=== PATIENT | female | born 1970 | race Caucasian/White ===

== ENCOUNTER 2018-08-19 14:17 | Emergency (ER) | payer MEDICAID ==
[2018-08-19] MEDS ORDERED: diazePAM 5 MG TABLET PO STA (16:00)
[2018-08-19] MEDS ORDERED: predniSONE 20 MG TABLET PO STA (16:00)
--- NOTE | 2018-08-19 16:01 | ED Physician Documentation ---
PD HPI BACK PAIN - Stated complaint Stated Complaint: BACK PX - Chief complaint Chief Complaint: Back Pain - History obtained from History obtained from: Patient - History of Present Illness Timing - onset: Other (several days ago) Timing - details: Gradual onset Severity Comments: moderate Location: Lower Quality: Pain, Spasm, Other (with radiation into her left buttocks and leg). No: Tearing, Aching, Throbbing, Dull, Similar to prior episodes Associated symptoms: No: Fever, Weakness, Numbness, Incontinent of urine, Unable to urinate, Hematuria, Incontinent of stool Improves with: Position Worsened by: Movement, Lifting, Twisting Contributing factors: Lifting, Twisting. No: Trauma, Anticoagulated, Cancer, IVDA, Out of meds Similar symptoms before: Other (similar to prior episodes) Recently seen: Not recently seen Review of Systems Constitutional: denies: Fever, Chills, Fatigue Eyes: denies: Loss of vision, Decreased vision Ears: denies: Ear pain Nose: denies: Congestion Throat: denies: Sore throat Cardiac: denies: Chest pain / pressure Respiratory: denies: Cough GI: denies: Abdominal Pain : denies: Dysuria Skin: denies: Rash Musculoskeletal: reports: Back pain. denies: Neck pain, Joint swelling Neurologic: denies: Generalized weakness, Focal weakness, Numbness, Difficulty speaking PD PAST MEDICAL HISTORY - Past Medical History Cardiovascular: High cholesterol, Deep vein thrombosis Respiratory: COPD Endocrine/Autoimmune: Type 2 diabetes GI: GERD : Other Musculoskeletal: Fibromyalgia - Present Medications Home Medications: Ambulatory Orders Medication Instructions Recorded Confirmed Albuterol Sulf [Ventolin Hfa 1 - 2 puffs INH Q4HR PRN 08/19/18 08/19/18 Inhaler] Atorvastatin [Lipitor] 0 mg 08/19/18 Budesonide/Formoterol Fumarate 10.2 gm IH 08/19/18 [Symbicort 160-4.5 Mcg Inhaler] Celecoxib [CeleBREX] 100 mg PO BID 08/19/18 08/19/18 Cetirizine [ZyrTEC] 10 mg PO ONCE 08/19/18 08/19/18 Cyclobenzaprine [Flexeril] 10 mg PO TID PRN 08/19/18 08/19/18 Dulaglutide [Trulicity] 1.5 mg SQ 08/19/18 Glipizide [Glucotrol] 5 mg PO 08/19/18 Hydroxychloroquine [Plaquenil] 200 mg PO DAILY 08/19/18 08/19/18 Lactobacillus Acidophilus 08/19/18 [Probiotic Acidophilus] Lansoprazole [Prevacid] 15 mg PO 08/19/18 Lisinopril 2.5 mg PO 08/19/18 Mometasone Furoate 30 ml TP 08/19/18 08/19/18 Montelukast [Singulair] 10 mg PO QPM 08/19/18 08/19/18 Pregabalin [Lyrica] 150 mg PO 08/19/18 SUMAtriptan [Imitrex] 25 mg PO 08/19/18 buPROPion [Wellbutrin Xl] 150 mg PO DAILY 08/19/18 08/19/18 diazePAM [Valium] 5 - 10 mg PO TID PRN #15 tablet 08/19/18 metFORMIN [Glucophage] 500 mg PO BIDWM 08/19/18 08/19/18 predniSONE [Prednisone] 60 mg PO DAILY #12 tablet 08/19/18 - Allergies Allergies/Adverse Reactions: Allergies Allergy/AdvReac Type Severity Reaction Status Date / Time adhesive Allergy Rash Verified 08/19/18 14:28 Sulfa (Sulfonamide Allergy Edema Verified 08/19/18 14:28 Antibiotics) - Social History Does the pt smoke?: No Smoking Status: Never smoker PD ED PE NORMAL - General General: Alert and oriented X 3. No: No acute distress (Patient appears quite uncomfortable) - HEENT HEENT: Atraumatic, PERRL, EOMI, Ears normal - Neck Neck: Supple, no meningeal sign - Cardiac Cardiac: RRR, Strong equal pulses - Respiratory Respiratory: No respiratory distress - Back Back: No: No spinal TTP (The patient has tenderness to palpation of the paraspinal muscles on the left lumbar over L4, L5 and S1. There is no skin changes, crepitus or swelling) - Derm Derm: Normal color - Extremities Extremities: No deformity, No tenderness to palpate, Normal ROM s pain, No edema, No calf tenderness / cord - Neuro Neuro: Alert and oriented X 3, No motor deficit, No sensory deficit, Normal speech, Other (2/4 Patellar reflex) - Psych Psych: Normal affect Results - Vitals Vitals: Vital Signs - 24 hr 08/19/18 14:25 Temperature 36 C L Heart Rate 90 Respiratory 22 Rate Blood Pressure 132/68 H O2 Saturation 98 Oxygen O2 Source Room air PD MEDICAL DECISION MAKING - ED course ED course: The patient's symptoms are consistent with sciatica, presently there is no findings on physical or on her history to suggest acute cauda equina or epidural abscess and currently emergent MRI is not warranted. The patient appears appropriate for discharge and ongoing outpatient management. I discussed the plan with the patient who understands and agrees. The patient will return for any worsening or any concerns Departure - Departure Disposition: 01 Home, Self Care Clinical Impression: Sciatica Qualifiers: Laterality: left Qualified Code(s): M54.32 - Sciatica, left side Condition: Good Instructions: ED Sciatica Follow-Up: Latisha Bhatti MD [Primary Care Provider] - Within 1 week (Please ask your primary care to arrange for outpatient physical therapy. If your symptoms not improving you may need a referral to pain management and possibly an outpatient MRI) Prescriptions: diazePAM [Valium] 5 - 10 mg PO TID PRN #15 tablet PRN Reason: Spasms predniSONE [Prednisone] 60 mg PO DAILY #12 tablet Comments: Please return to the emergency department for worsening symptoms or any concerns
[2018-08-19 16:32] VITALS: BP 110/53
== END 2018-08-19 16:31 | disposition home or self-care (01) ==
LOC: ED 14:17
DX: M54.42 Lumbago with sciatica, left side (principal); E11.9 Type 2 diabetes mellitus without complications; Z79.84 Long term (current) use of oral hypoglycemic drugs
CPT/HCPCS: 99283; A9270; J7512

== ENCOUNTER 2019-02-15 12:54 | Outpatient (CLI) | payer MEDICAID | END 2019-02-15 12:55 | disposition critical access hospital (66) | LOC: EMS 12:54 | PROVIDERS: ATTEND Surgery | DX: M79.89 Other specified soft tissue disorders (principal); M79.662 Pain in left lower leg; Z86.718 Personal history of other venous thrombosis and embolism | CPT/HCPCS: A0425; A0429 ==

== ENCOUNTER 2019-02-15 13:27 | Emergency (ER) | payer MEDICAID ==
--- NOTE | 2019-02-15 14:53 | Ultrasound Report ---
Reason: leg swelling and redness Procedure Date: 02/15/2019 Accession Number: [id number] / [id number] Procedure: US - Duplex Ext Veins Left CPT Code: FULL RESULT: EXAM: LEFT LOWER EXTREMITY VENOUS ULTRASOUND EXAM DATE: 02/15/2019 02:28 PM. CLINICAL HISTORY: Leg swelling and redness. COMPARISON: None. TECHNIQUE: Real-time sonographic vascular imaging was performed by the sales and service specialist through the lower extremity utilizing both color-flow and Doppler spectral analysis. Multiple retention representative static images were saved for review. FINDINGS: The exam is limited due to patient's body habitus and the patient unable to tolerate compression test. Common Femoral Vein (CFV): Unremarkable. CFV-GSV Junction: Unremarkable. Profunda Femoral Vein (PFV): Unremarkable. Femoral Vein (FV) Prox: Unremarkable. Femoral Vein (FV) Mid: Unremarkable. Femoral Vein (FV) Dist: Unremarkable. Popliteal Vein: Unremarkable. Posterior Tibial Veins: Unremarkable. Peroneal Veins: Normal. Other: None. IMPRESSION: Negative exam. No evidence for deep venous thrombosis. RADIA
[2019-02-15 15:36] VITALS: BP 124/62
--- NOTE | 2019-02-15 15:39 | ED Physician Documentation ---
PD HPI LOWER EXT INJURY - Stated complaint Stated Complaint: LEG SWELLING - Chief complaint Chief Complaint: Ext Problem - History obtained from History obtained from: Patient - History of Present Illness PD HPI LOW EXT INJURY LOCATION: Left, Lower leg Type of injury: Other (redness and swelling have developed over several days. No noted injury, irritant, sting, bite, etc.). No: Fall, Twist Timing - onset: How many days ago (several) Timing - duration: Days Timing - details: Gradual onset, Still present Worsened by: Palpating Associated symptoms: Swelling, Discolored (some redness to lower leg, mainly left leg. Has history of some edema mildly in both), Other (has had some itching of the skin on anterior left lower leg. No noted chemical, plant, bug bit etc.). No: Weakness, Numbness Contributing factors: No: Anticoagulated Similar symptoms before: Diagnosis (had similar swelling and pain in the past with a DVT.) Recently seen: Not recently seen Review of Systems Constitutional: denies: Fever, Chills Nose: denies: Rhinorrhea / runny nose, Congestion Throat: denies: Sore throat Cardiac: denies: Chest pain / pressure, Palpitations Respiratory: denies: Dyspnea, Cough GI: denies: Abdominal Pain, Nausea, Vomiting, Diarrhea Skin: reports: Lesions (has some few red spots on lower leg from scratching itchy areas the past few days.) Neurologic: denies: Focal weakness, Numbness PD PAST MEDICAL HISTORY - Past Medical History Past Medical History: Yes Cardiovascular: High cholesterol, Deep vein thrombosis Respiratory: COPD Neuro: Migraines Endocrine/Autoimmune: Type 2 diabetes GI: GERD : Other Psych: Depression Musculoskeletal: Osteoarthritis, Fibromyalgia - Past Surgical History Past Surgical History: Yes General: Hiatal hernia repair HEENT: Tonsil/Adenoidectomy - Present Medications Home Medications: Ambulatory Orders Medication Instructions Recorded Confirmed Albuterol Sulf [Ventolin Hfa 1 - 2 puffs INH Q4HR PRN 08/19/18 08/19/18 Inhaler] Atorvastatin [Lipitor] 0 mg 08/19/18 Budesonide/Formoterol Fumarate 10.2 gm IH 08/19/18 [Symbicort 160-4.5 Mcg Inhaler] Celecoxib [CeleBREX] 100 mg PO BID 08/19/18 08/19/18 Cetirizine [ZyrTEC] 10 mg PO ONCE 08/19/18 08/19/18 Cyclobenzaprine [Flexeril] 10 mg PO TID PRN 08/19/18 08/19/18 Dulaglutide [Trulicity] 1.5 mg SQ 08/19/18 Glipizide [Glucotrol] 5 mg PO 08/19/18 Hydroxychloroquine [Plaquenil] 200 mg PO DAILY 08/19/18 08/19/18 Lactobacillus Acidophilus 08/19/18 [Probiotic Acidophilus] Lansoprazole [Prevacid] 15 mg PO 08/19/18 Lisinopril 2.5 mg PO 08/19/18 Mometasone Furoate 30 ml TP 08/19/18 08/19/18 Montelukast [Singulair] 10 mg PO QPM 08/19/18 08/19/18 Pregabalin [Lyrica] 150 mg PO 08/19/18 SUMAtriptan [Imitrex] 25 mg PO 08/19/18 buPROPion [Wellbutrin Xl] 150 mg PO DAILY 08/19/18 08/19/18 diazePAM [Valium] 5 - 10 mg PO TID PRN #15 tablet 08/19/18 metFORMIN [Glucophage] 500 mg PO BIDWM 08/19/18 08/19/18 predniSONE [Prednisone] 60 mg PO DAILY #12 tablet 08/19/18 Cephalexin [Keflex] 500 mg PO Q6H #20 capsule 02/15/19 dexAMETHasone [Decadron] 4 mg PO DAILY #5 tablet 02/15/19 - Allergies Allergies/Adverse Reactions: Allergies Allergy/AdvReac Type Severity Reaction Status Date / Time adhesive Allergy Rash Verified 02/15/19 13:32 Sulfa (Sulfonamide Allergy Edema Verified 02/15/19 13:32 Antibiotics) - Social History Does the pt smoke?: No Smoking Status: Never smoker Does the pt drink ETOH?: No Does the pt have substance abuse?: No - Immunizations Immunizations are current?: Yes - POLST Patient has POLST: No PD ED PE NORMAL - Vitals Vital signs reviewed: Yes - General General: Alert and oriented X 3, No acute distress, Well developed/nourished - Cardiac Cardiac: RRR, No murmur - Respiratory Respiratory: Clear bilaterally - Derm Derm: Normal color, Warm and dry - Extremities Extremities: Other (left lower leg with some redness anteriorly and medially, but not deep red. No warmth per se. Few superficial rounded abrasions. No pustules. Some tenderness medial lower leg and calf. Some swelling compared to right, but both with some edema. Right is not tender. ) - Neuro Neuro: No motor deficit, No sensory deficit Results - Vitals Vitals: Oxygen O2 Source Room air - Rads (name of study) Duplex lower leg Radiology: Prelim report reviewed (no DVT), See rad report PD MEDICAL DECISION MAKING - ED course Complexity details: reviewed results (Duplex shows no DVT. ), considered differential (some mild redness anteriorly and medially on lower leg, with some few small scratches. Consider some dermatitis. Consider cellulitis, but not as red as I would expect. Consider DVT and will get Duplex. ), d/w patient Departure - Departure Disposition: 01 Home, Self Care Clinical Impression: Swelling of left lower extremity Cellulitis Qualifiers: Site of cellulitis: extremity Site of cellulitis of extremity: lower extremity Laterality: left Qualified Code(s): L03.116 - Cellulitis of left lower limb Condition: Stable Record reviewed to determine appropriate education?: Yes Follow-Up: ELYSSA LOFTON [Primary Care Provider] - Prescriptions: Cephalexin [Keflex] 500 mg PO Q6H #20 capsule dexAMETHasone [Decadron] 4 mg PO DAILY #5 tablet Comments: This may be an irritation of the skin (dermatitis). As such continue your cetirizine and add Benadryl every 6 hours if needed for itchiness. We will also add Decadron steroid for 5 days. The redness and swelling of the skin could also be infection and so we will add cephalexin antibiotic as well. Elevate and rest the leg often the next couple of days. Recheck if not improved well over the next several days. Your ultrasound did not show any signs of blood clots. The test has a very good accuracy for blood clots but not 100%, so if your leg continues to have swelling and tenderness into next week, your provider could always repeat the ultrasound at about 5 to 7 days just to ensure we do not miss an early one. Discharge Date/Time: 02/15/19 16:27
[2019-02-15] MEDS ORDERED: CHERRY SYRUP 10 ML UDC PO ONE (15:53)
[2019-02-15] MEDS ORDERED: cephALEXin 250 MG CAPSULE PO STA (15:53)
[2019-02-15] MEDS ORDERED: DEXAMETHASONE 10 MG/ML VIAL PO STA (15:53)
== END 2019-02-15 16:27 | disposition home or self-care (01) ==
LOC: EDUNIT# → ED 13:27
DX: L03.116 Cellulitis of left lower limb (principal); M79.89 Other specified soft tissue disorders; S80.812A Abrasion, left lower leg, initial encounter; X58.XXXA Exposure to other specified factors, initial encounter; Z86.718 Personal history of other venous thrombosis and embolism; E11.9 Type 2 diabetes mellitus without complications; Z79.84 Long term (current) use of oral hypoglycemic drugs
CPT/HCPCS: 93971; 99284; A9270

== ENCOUNTER 2019-03-22 16:26 | Outpatient (CLI) | payer MEDICAID | END 2019-03-22 16:27 | disposition critical access hospital (66) | LOC: EMS 16:26 | PROVIDERS: ATTEND Surgery | DX: R06.00 Dyspnea, unspecified (principal) | CPT/HCPCS: A0425; A0427; A0999 ==

== ENCOUNTER 2019-03-22 16:56 | Inpatient (IN) | payer MEDICAID ==
--- NOTE | 2019-03-22 16:59 | ED Physician Documentation ---
History of Present Illness - Stated complaint Stated Complaint: SOA - Additonal information Additional information: This is a 49-year-old female with a history of tracheoesophageal fistula repaired at , COPD, diabetes, recurrent pneumonias, left upper lobe lobectomy, secondary to necrotic lung, who presents with increasing shortness of breath. Patient states that 3 days ago she began to feel some mild shortness of breath, she is also had intermittent cough it is nonproductive, this is progressed over the last 3 days and is not now fairly severe. She states that when her physical therapist checked her oxygen saturation 3 days ago she did have a large saturation of 88%. She denies fever or chills, denies abdominal pain. She does not have any chest pain. She denies leg swelling. She does have a history of pulmonary embolisms in the past, she is not on anticoag ulation. Review of Systems Constitutional: denies: Fever Nose: denies: Rhinorrhea / runny nose Throat: reports: Other (Hx TE fistula, repaired) Cardiac: denies: Chest pain / pressure Respiratory: reports: Dyspnea, Cough GI: denies: Abdominal Pain : denies: Dysuria Skin: denies: Rash Neurologic: denies: Focal weakness PD PAST MEDICAL HISTORY - Past Medical History Cardiovascular: High cholesterol, Deep vein thrombosis Respiratory: COPD Neuro: Migraines Endocrine/Autoimmune: Type 2 diabetes GI: GERD : Other Psych: Depression Musculoskeletal: Osteoarthritis, Fibromyalgia - Past Surgical History Past Surgical History: Yes General: Hiatal hernia repair HEENT: Tonsil/Adenoidectomy - Present Medications Home Medications: Ambulatory Orders Medication Instructions Recorded Confirmed Albuterol Sulf [Ventolin Hfa 1 - 2 puffs INH Q4HR PRN 08/19/18 08/19/18 Inhaler] Atorvastatin [Lipitor] 0 mg 08/19/18 Budesonide/Formoterol Fumarate 10.2 gm IH DAILY 08/19/18 [Symbicort 160-4.5 Mcg Inhaler] Celecoxib [CeleBREX] 100 mg PO BID 08/19/18 08/19/18 Cetirizine [ZyrTEC] 10 mg PO ONCE 08/19/18 08/19/18 Cyclobenzaprine [Flexeril] 10 mg PO TID PRN 08/19/18 08/19/18 Glipizide [Glucotrol] 5 mg PO DAILY 08/19/18 Hydroxychloroquine [Plaquenil] 200 mg PO DAILY 08/19/18 08/19/18 Lactobacillus Acidophilus 08/19/18 [Probiotic Acidophilus] Lansoprazole [Prevacid] 15 mg PO DAILY 08/19/18 03/22/19 Lisinopril 2.5 mg PO DAILY 08/19/18 03/22/19 Mometasone Furoate 30 ml TP DAILY 08/19/18 03/22/19 Montelukast [Singulair] 10 mg PO QPM 08/19/18 03/22/19 Pregabalin [Lyrica] 150 mg PO DAILY 08/19/18 03/22/19 SUMAtriptan [Imitrex] 25 mg PO DAILY 08/19/18 03/22/19 buPROPion [Wellbutrin Xl] 300 mg PO DAILY 08/19/18 03/22/19 diazePAM [Valium] 5 - 10 mg PO TID PRN #15 tablet 08/19/18 03/22/19 metFORMIN [Glucophage] 500 mg PO BIDWM 08/19/18 03/22/19 - Allergies Allergies/Adverse Reactions: Allergies Allergy/AdvReac Type Severity Reaction Status Date / Time adhesive Allergy Rash Verified 02/15/19 13:32 Sulfa (Sulfonamide Allergy Edema Verified 02/15/19 13:32 Antibiotics) - Social History Does the pt smoke?: No Smoking Status: Never smoker Does the pt drink ETOH?: No Does the pt have substance abuse?: No - Immunizations Immunizations are current?: Yes - POLST Patient has POLST: No PD ED PE NORMAL - Vitals Vital signs reviewed: Yes - General General: Alert and oriented X 3 - HEENT HEENT: Atraumatic - Neck Neck: Supple, no meningeal sign - Cardiac Cardiac: Other (Borderline tachycardia on my exam, regular rhythm.) - Respiratory Respiratory: Other (Tachypnea, increased work of breathing. Scattered crackles that fade with repeat breaths.) - Abdomen Abdomen: Soft, Non tender, Non distended - Derm Derm: Warm and dry - Extremities Extremities: No deformity - Neuro Neuro: Alert and oriented X 3 - Psych Psych: Normal mood, Normal affect Results - Vitals Vitals: Vital Signs - 24 hr 03/22/19 03/22/19 03/22/19 17:00 17:35 18:00 Temperature 36.2 C L Heart Rate 87 88 Respiratory 20 18 18 Rate Blood Pressure 124/98 H O2 Saturation 95 88 L 03/22/19 03/22/19 18:48 19:20 Temperature Heart Rate 91 98 Respiratory 17 19 Rate Blood Pressure 130/69 142/78 H O2 Saturation 96 96 Oxygen O2 Source Nasal cannula - EKG (time done) 17:11 Other comments: Other comments (Rate 91, rhythm sinus, there is left axis deviation, there is no ST segment elevation or depression, there is borderline prolonged QT interval at 480.) - Labs Labs: Laboratory Tests 03/22/19 03/22/19 03/22/19 17:45 17:45 17:45 WBC 13.6 H RBC 3.75 L Hgb 10.7 L Hct 33.4 L MCV 89.1 MCH 28.5 MCHC 32.0 RDW 17.2 H Plt Count 213 MPV 11.6 H Neut # (Auto) 12.6 H Lymph # (Auto) 0.[address] [place] # (Auto) 0.3 Eos # (Auto) 0.0 Baso # (Auto) 0.0 Absolute Nucleated RBC 0.00 Nucleated RBC % 0.0 PT 13.5 H INR 1.2 Sodium 139 Potassium 4.7 Chloride 101 Carbon Dioxide 27 Anion Gap 11.0 BUN 15 Creatinine 1.2 H Estimated GFR (MDRD) 48 L Glucose 367 H Calcium 9.0 Total Bilirubin 1.1 H AST 14 ALT 15 Alkaline Phosphatase 81 Troponin I High Sens B-Natriuretic Peptide Total Protein 6.9 Albumin 3.6 Globulin 3.3 Albumin/Globulin Ratio 1.1 Lipase 29 03/22/19 03/22/19 17:45 17:45 WBC RBC Hgb Hct MCV MCH MCHC RDW Plt Count MPV Neut # (Auto) Lymph # (Auto) [place] # (Auto) Eos # (Auto) Baso # (Auto) Absolute Nucleated RBC Nucleated RBC % PT INR Sodium Potassium Chloride Carbon Dioxide Anion Gap BUN Creatinine Estimated GFR (MDRD) Glucose Calcium Total Bilirubin AST ALT Alkaline Phosphatase Troponin I High Sens 8.2 B-Natriuretic Peptide 70 Total Protein Albumin Globulin Albumin/Globulin Ratio Lipase - Rads (name of study) CXR Radiology: Other (Airspace opacity concerning for pneumonia in the left upper lobe.) PD MEDICAL DECISION MAKING - ED course Complexity details: considered differential (Pneumonia, PE, pneumonitis, ACS, Asthma/bronchospasm) ED course: On initial examination patient is tachypneic, she does desaturate to 88% on room air anytime that her breathing slows down. She was placed on 2 L nasal cannula and her oxygenation improved. Labs are notable for a leukocytosis, her x-ray does show airspace opacities concerning for pneumonia. When patient ambulates her oxygen dropped as low as 80% when she is off of oxygen. Given her history of pulmonary embolisms a CT of her chest was obtained which shows multifocal airspace opacities consistent with pneumonia, no signs of pulmonary embolism. Given her hypoxia patient was admitted to the hospital, I spoke with Dr. Lowry who admitted her, and will start antibiotics. Patient was updated with this plan of care, she is hemodynamically stable, with no new complaints. Her EKG shows no signs of acute ischemia, troponin and BNP negative, and she is not having any chest pain, ACS is extremely unlikely. Departure - Departure Disposition: ED Place in Observation Clinical Impression: Hypoxia Condition: Stable Discharge Date/Time: 03/22/19 21:05
[2019-03-22] MEDS ORDERED: IPRATROPIUM/ALBUTEROL 3 ML NEB INH STA (17:09)
--- NOTE | 2019-03-22 17:48 | XRAY Report ---
Reason: Chest Pain Procedure Date: 03/22/2019 Accession Number: [id number] / [id number] Procedure: XR - Chest 1 View X-Ray CPT Code: 73508 FULL RESULT: EXAM: CHEST RADIOGRAPHY EXAM DATE: 03/22/2019 05:22 PM. CLINICAL HISTORY: Chest Pain. Shortness of breath. Nonproductive cough. COMPARISON: None. TECHNIQUE: Upright AP view. FINDINGS: Lungs/Pleura: Mild airspace consolidation in the left suprahilar region. Right lung clear. No interstitial abnormality. No pneumothorax or gross pleural fluid. Mediastinum: Within exam limitations, the cardiomediastinal contour is normal. Other: None. IMPRESSION: Mild left upper lobe consolidation suggesting pneumonia. RADIA
[2019-03-22 17:49] LABS: BASOPHILS % (AUTO) 0.3 %; EOSINOPHILS % (AUTO) 0.1 %; HGB - HEMOGLOBIN 10.7 g/dL (12.0-16.0); LYMPHOCYTES # (AUTO) 0.6 10^3/uL (1.5-3.5); MEAN CORPUSCULAR HEMOGLOBIN 28.5 pg (27.0-31.0); MEAN CORPUSCULAR VOLUME 89.1 fL (81.0-99.0); MEAN PLATELET VOLUME 11.6 fL (7.9-10.8); MONOCYTES # (AUTO) 0.3 10^3/uL (0.0-1.0); MONOCYTES % (AUTO) 2.5 %; NEUTROPHILS # (AUTO) 12.6 10^3/uL (1.5-6.6); NEUTROPHILS % (AUTO) 92.2 %; PLT - PLATELET COUNT 213 10^3/uL (130-450); RED BLOOD COUNT 3.75 10^6/uL (4.20-5.40); RED CELL DISTRIBUTION WIDTH 17.2 % (12.0-15.0); WHITE BLOOD COUNT 13.6 x10^3/uL (4.8-10.8)
[2019-03-22 18:00] LABS: INR 1.2 (0.8-1.2); PT - PROTHROMBIN TIME 13.5 secs (9.9-12.6)
[2019-03-22 18:03] LABS: ALBUMIN 3.6 g/dL (3.2-5.5); ALBUMIN/GLOBULIN RATIO 1.1 (1.0-2.2); BILIRUBIN,TOTAL 1.1 mg/dL (0.2-1.0); CREATININE 1.2 mg/dL (0.4-1.0); TOTAL PROTEIN 6.9 g/dL (6.7-8.2)
[2019-03-22] MEDS ORDERED: ONDANSETRON 4 MG/2 ML VIAL IVP PRN (20:01)
[2019-03-22] MEDS ORDERED: ACETAMINOPHEN 325 MG TABLET PO PRN (20:01)
[2019-03-22] MEDS ORDERED: IOVERSOL 320 100 ML VIAL IVP ONE (20:05)
--- NOTE | 2019-03-22 20:58 | CT Report ---
Reason: Hx PE, hypoxia Procedure Date: 03/22/2019 Accession Number: [id number] / [id number] Procedure: CT - ANGIO CHEST W/WO CPT Code: FULL RESULT: EXAM: CT ANGIOGRAM CHEST EXAM DATE: 03/22/2019 08:21 PM. CLINICAL HISTORY: Shortness of breath. COMPARISON: None. TECHNIQUE: Routine helical imaging was performed through the chest in the pulmonary arterial phase. IV Contrast: 100 mL Optiray 320. Reconstructions: Coronal 3-D MIP reconstructions.Sagittal and coronal. In accordance with CT protocol optimization, one or more of the following dose reduction techniques were utilized for this exam: automated exposure control, adjustment of mA and/or KV based on patient size, or use of iterative reconstructive technique. FINDINGS: Pulmonary Arteries: Diagnostic quality: Adequate through the segmental arteries. No evidence for acute or chronic pulmonary emboli. Lungs/Pleura: There is moderate consolidation in the upper lobes, left side worse than right side suggesting multifocal pneumonia or aspiration. Small pleural effusions are also present. Mediastinum: Heart size is normal with no pericardial effusion. Mild calcified coronary artery disease is seen. A fluid filled slightly dilated upper esophagus is seen which may be due to reflux. No adenopathy. Small hiatal hernia is present. Thoracic Aorta: Unremarkable. Upper Abdomen: Unremarkable. Other: Diffuse degenerative changes are seen in the spine. No acute osseous abnormality is demonstrated. IMPRESSION: 1. No pulmonary embolism or other acute vascular pathology. 2. Moderate upper lobe airspace disease suggesting multifocal pneumonia or aspiration. 3. Small bilateral pleural effusions and atelectasis. 4. Small hiatal hernia and fluid in dilated upper esophagus which may be related to reflux. RADIA
[2019-03-22] MEDS ORDERED: IPRATROPIUM/ALBUTEROL 3 ML NEB INH PRN (21:38)
[2019-03-22] MEDS: HEPARIN 5,000 UNIT/ML VIAL SUBQ SCH (21:49)
[2019-03-22] MEDS: cefTRIAXone 1 GM in SODIUM CHLORIDE 0.9% MINIBAG 100 ML IV SCH (21:49)
--- NOTE | 2019-03-22 21:50 | HISTORY & PHYSICAL EXAMINATION ---
Chief Complaint - Chief Complaint Chief Complaint: Shortness of breath History of Present Illness - Admitted From Admitted From:: Home - History Obtained From Records Reviewed: Yes History obtained from: Patient, ER Physician - History of Present Illness HPI Comment/Other: This is a 49 year old female with a past medical history significant for trac heoesophageal fistula s/p repair, type 2 diabeted w/ neuropathy, COPD, and GERD who presents from home complaining of worsening shortness of breath over these past three days. She denies associated fevers but has had a mild nonproductive cough. She denies worsening of her chronic lower extremity edema. She sleeps on a slight incline at home which is not changed compared to her baseline. She reports a prior history of pulmonary embolism a few years ago for which she was treated with Coumadin for 6 months. She has had multiple episdoes of pneumonia when she was younger and the last episode was over 20 years ago. She did require intubations at that time. 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 She reports she was told she only has 3/4 of a functioning right lung. She reports mild chest tightness that resolved with a breathing treatment. Denies nausea, vomiting, abdominal pain. In the ER, she was normotensive but tachycardic with heart rate in the 90's. She was also hypoxic on room air at 88% which improved to mid 90's on 2L NC. Her labs did reveal an elevated white count with a left shift. Her x-ray was concerning for left sided infiltrate. A CTA was done which was negative for pulmonary embolism but did confirm infiltrates suggestive of multifocal pne umonia or aspiration. She will be admitted for further management. History - Past Medical History Cardiovascular: reports: High cholesterol, Deep vein thrombosis Respiratory: reports: COPD Neuro: reports: Migraines Endocrine/Autoimmune: reports: Type 2 diabetes GI: reports: GERD : reports: Renal insuffiency Psych: reports: Depression Musculoskeletal: reports: Osteoarthritis, Fibromyalgia MRSA Hx?: No - Past Surgical History General: reports: Hiatal hernia repair HEENT: reports: Tonsil/Adenoidectomy - Family & Social History Family History Comment/Other: She reports a family history of heart failure on her mother's side of the family. Does not report any other family history. Reports no history of lung cancer. Living arrangement: At home Living Situation: With friend(s) Social History Notes: She currently lives on [facility] and is staying in a spare room with some friends. She is not currently working. Was employed as an front office representative. Does not smoke. Drinks alcohol at times. No illicit drug use at this time. Previously used CBD oil three months ago. - Substance History Use: Uses substance without health or social issues: NONE - POLST Patient has POLST: No Meds/Allgy - Home Medications Home Medications: Ambulatory Orders Medication Instructions Recorded Confirmed Albuterol Sulf [Ventolin Hfa 1 - 2 puffs INH Q4HR PRN 08/19/18 08/19/18 Inhaler] Atorvastatin [Lipitor] 0 mg 08/19/18 Budesonide/Formoterol Fumarate 10.2 gm IH DAILY 08/19/18 [Symbicort 160-4.5 Mcg Inhaler] Celecoxib [CeleBREX] 100 mg PO BID 08/19/18 08/19/18 Cetirizine [ZyrTEC] 10 mg PO ONCE 08/19/18 08/19/18 Cyclobenzaprine [Flexeril] 10 mg PO TID PRN 08/19/18 08/19/18 Glipizide [Glucotrol] 5 mg PO DAILY 08/19/18 Hydroxychloroquine [Plaquenil] 200 mg PO DAILY 08/19/18 08/19/18 Lactobacillus Acidophilus 08/19/18 [Probiotic Acidophilus] Lansoprazole [Prevacid] 15 mg PO DAILY 08/19/18 03/22/19 Lisinopril 2.5 mg PO DAILY 08/19/18 03/22/19 Mometasone Furoate 30 ml TP DAILY 08/19/18 03/22/19 Montelukast [Singulair] 10 mg PO QPM 08/19/18 03/22/19 Pregabalin [Lyrica] 150 mg PO DAILY 08/19/18 03/22/19 SUMAtriptan [Imitrex] 25 mg PO DAILY 08/19/18 03/22/19 buPROPion [Wellbutrin Xl] 300 mg PO DAILY 08/19/18 03/22/19 diazePAM [Valium] 5 - 10 mg PO TID PRN #15 tablet 08/19/18 03/22/19 metFORMIN [Glucophage] 500 mg PO BIDWM 08/19/18 03/22/19 - Allergies Allergies/Adverse Reactions: Allergies Allergy/AdvReac Type Severity Reaction Status Date / Time adhesive Allergy Rash Verified 02/15/19 13:32 Sulfa (Sulfonamide Allergy Edema Verified 02/15/19 13:32 Antibiotics) Review of Systems - Constitutional Constitutional: denies: Fever, Chills, Poor appetite - Cardiovascular Cariovascular: reports: Edema, Exertional dyspnea, Decr. exercise tolerance. denies: Chest pain - Respiratory Respiratory: reports: Cough, SOB at rest, SOB with exertion. denies: Orthopnea - Gastrointestinal Gastrointestinal: denies: Abdominal pain, Diarrhea, Nausea, Vomiting - Genitourinary Genitourinary: denies: Dysuria, Frequency, Urgency - Integumentary Integumentary: denies: Rash - Neurological Neurological: reports: Numbness. denies: General weakness, Focal weakness - All Other Systems All Other Systems: reports: Reviewed and negative Prior Level of Functionality: Independent with ADL's. Exam - Vital Signs Reviewed Vital Signs: Yes Vital Signs: Vital Signs x48h Temp Pulse Pulse Resp BP BP Pulse Ox 03/22/19 21:10 37.3 C 90 20 130/66 99 03/22/19 20:50 36.6 C 03/22/19 20:37 87 16 128/79 99 03/22/19 20:05 17 03/22/19 19:20 98 19 142/78 H 96 03/22/19 18:48 91 17 130/69 96 03/22/19 18:00 88 18 88 L 03/22/19 17:35 87 18 03/22/19 17:00 36.2 C L 20 124/98 H 95 - Physical Exam General Appearance: positive: No acute distress, Alert Eyes Bilateral: positive: Normal inspection ENT: positive: ENT inspection nml Neck: positive: Nml inspection Respiratory: positive: No respiratory distress, Rales, Rhonchi Cardiovascular: positive: Regular rate & rhythm, No murmur. negative: Tachycardia, Bradycardia, Systolic murmur, Diastolic murmur Abdomen: positive: Non-tender, No distention. negative: Tenderness, Guarding, Rebound Skin: positive: No rash, Warm, Dry Extremities: positive: Pedal edema (+1 nonpitting edema in lower extremties.) Neurologic/Psychiatric: positive: Oriented x3, CN's nml (2-12) (Grossly intact), Other (No focal motor deficits). negative: Disoriented to person, Disoriented to place, Disoriented to time Sepsis Event Note (H) - Evaluation Current Stage of Sepsis: Sepsis - Sepsis Criteria Sepsis Criteria: Recorded Heart Rate greater than 90 bpm, Recorded Respiratory Rate greater than 20, Respiratory: Increasing oxygen requirements, WBC count greater than 12,000 or less than 4000 Conclusion/Plan - Problem List (1) Sepsis due to pneumonia Conclusion/Plan: Presented with tachycardia, tachypnea, hypoxia, and leukocytosis with a left shift. CT revaled bilateral multifocal disease. There is concern for possible aspiration on imaging given there is fluid in the upper esophagus as well. Has history of multiple episodes of pneumonia in the past but that was nearly 20 years ago. - Will start Ceftriaxone and Azithromycin IV to cover for community acuired pneumonia - Will add Flagyl due to concern for aspiration - Continue Protonix - Supplemental O2 as needed - Swallow eval - She may benefit from a VFSS as she could have silent aspiration (2) Hypoxia Conclusion/Plan: This is secondary to her pneumonia. Imaging negative for PE. BNP is normal so less likely heart failure. Saturating 88% on room air which improves to mid 90's with 2L via nasal cannula. - IV antibiotics - Albuterol PRN - Supplemental O2 as needed (3) CKD (chronic kidney disease) Conclusion/Plan: Likely secondary to her diabetes. Creatinine is 1.2 which is likely her baseline. No prior labs to compare to. On Lisinopril at home. - Continue Lisinopril (4) Type 2 diabetes mellitus with diabetic neuropathy Conclusion/Plan: She is on Metformin, Glipizide and Pioglitazone at home. Complicated by neuropathy for which she takes Lyrica. Reports last A1c was 7.6%. Blood glucose elevated >300 on admission. - Insulin sliding scale - CC diet (5) Fibromyalgia Conclusion/Plan: She is on Lyrica and Tylenol at home. Stable. - Continue Lyrica and Tylenol (6) Depression Conclusion/Plan: She is on Wellbutrin at home. Stable. - Continue Wellbutrin - Lab Results Lab results reviewed: Yes Fish Bones: 03/22/19 17:45 03/22/19 17:45 - Diagnostic Imaging Results Diagnostic Imaging Results: positive: Final report reviewed Core Measures - Anticipated LOS I expect patient to be DC'd or transferred within 96 hours.: Yes - Issues Hospital Issues and Management Plan: Hypoxia secondary to pneumonia requiring antibiotics. Wean oxygen as tolerated. - DVT/VTE - Prophylaxis VTE/DVT Device ordered at admit?: Yes VTE/DVT Prophylaxis med ordered at admit?: Yes
[2019-03-22] MEDS: INSULIN ASPART 300 UNIT/3 ML PEN SUBQ SCH (22:33)
[2019-03-22] MEDS: AZITHROMYCIN INJ 500 MG in SODIUM CHLORIDE 0.9% 250 ML IV SCH (22:34)
[2019-03-22] MEDS: MONTELUKAST 10 MG TABLET PO SCH (22:36)
[2019-03-22] MEDS: PREGABALIN 100 MG CAPSULE PO SCH (22:36)
[2019-03-23] MEDS: SODIUM CHLORIDE FLUSH 0.9% 10 ML SYRINGE IVP SCH ×3 (00:19→15:58)
[2019-03-23] MEDS ORDERED: PANTOPRAZOLE 40 MG TABLET PO SCH (07:00)
[2019-03-23] MEDS: BUDESONIDE 0.5 MG/2 ML NEB INH SCH ×2 (07:21→20:25)
[2019-03-23] MEDS ORDERED: INSULIN ASPART 300 UNIT/3 ML PEN SUBQ SCH (08:00)
[2019-03-23] MEDS ORDERED: PREGABALIN 25 MG CAPSULE PO SCH (09:00)
[2019-03-23] MEDS ORDERED: LISINOPRIL 5 MG TABLET PO SCH (09:00)
[2019-03-23] MEDS: INSULIN ASPART 300 UNIT/3 ML PEN SUBQ SCH ×4 (09:29→21:34)
[2019-03-23] MEDS: buPROPion XL 150 MG TABLET PO SCH (09:31)
[2019-03-23] MEDS: cefTRIAXone 1 GM in SODIUM CHLORIDE 0.9% MINIBAG 100 ML IV SCH (09:33)
[2019-03-23] MEDS: LANSOPRAZOLE 15 MG CAPSULE PO SCH (09:33)
[2019-03-23] MEDS: HEPARIN 5,000 UNIT/ML VIAL SUBQ SCH (09:41)
[2019-03-23 09:56] LABS: BASOPHILS % (AUTO) 0.4 %; EOSINOPHILS # (AUTO) 0.1 10^3/uL (0.0-0.7); EOSINOPHILS % (AUTO) 0.8 %; HGB - HEMOGLOBIN 9.9 g/dL (12.0-16.0); LYMPHOCYTES # (AUTO) 1.7 10^3/uL (1.5-3.5); LYMPHOCYTES % (AUTO) 15.7 %; MEAN CORPUSCULAR HEMOGLOBIN 28.5 pg (27.0-31.0); MEAN CORPUSCULAR VOLUME 91.9 fL (81.0-99.0); MEAN PLATELET VOLUME 11.5 fL (7.9-10.8); MONOCYTES # (AUTO) 0.7 10^3/uL (0.0-1.0); MONOCYTES % (AUTO) 6.7 %; NEUTROPHILS # (AUTO) 8.1 10^3/uL (1.5-6.6); NEUTROPHILS % (AUTO) 75.8 %; PLT - PLATELET COUNT 216 10^3/uL (130-450); RED BLOOD COUNT 3.47 10^6/uL (4.20-5.40); RED CELL DISTRIBUTION WIDTH 17.5 % (12.0-15.0); WHITE BLOOD COUNT 10.7 x10^3/uL (4.8-10.8)
[2019-03-23 10:10] LABS: CALCIUM 8.8 mg/dL (8.5-10.3); MAGNESIUM 1.3 mg/dL (1.7-2.8)
[2019-03-23] MEDS: AZITHROMYCIN INJ 500 MG in SODIUM CHLORIDE 0.9% 250 ML IV SCH (10:51)
[2019-03-23] MEDS ORDERED: SUMAtriptan 25 MG TABLET PO PRN (12:14)
[2019-03-23] MEDS ORDERED: ACETAMINOPHEN 500 MG TABLET PO PRN (12:14)
[2019-03-23] MEDS ORDERED: CYCLOBENZAPRINE 10 MG TABLET PO PRN (12:14)
[2019-03-23] MEDS ORDERED: buPROPion XL 150 MG TABLET PO SCH (12:15)
[2019-03-23] MEDS ORDERED: BUDESONIDE INH SCH (12:15)
[2019-03-23] MEDS ORDERED: PREGABALIN 150 MG PO SCH (12:30)
[2019-03-23] MEDS ORDERED: LACTOBACILLUS RHAMNOSUS GG CAPSULE PO SCH (12:30)
[2019-03-23] MEDS ORDERED: lamoTRIgine 25 MG TABLET PO SCH (13:00)
[2019-03-23] MEDS: metroNIDAZOLE 500 MG/100 ML 500 MG/100 ML BAG IV SCH ×2 (13:00→21:22)
[2019-03-23] MEDS: SODIUM CHLORIDE FLUSH 0.9% 10 ML SYRINGE IVP PRN ×2 (13:02→21:23)
[2019-03-23] MEDS: AZITHROMYCIN 250 MG TABLET PO SCH (13:03)
[2019-03-23] MEDS: CETIRIZINE 10 MG TABLET PO SCH (13:03)
[2019-03-23] MEDS: HYDROXYCHLOROQUINE 200 MG TABLET PO SCH (13:03)
[2019-03-23] MEDS: guaiFENesin 600 MG TABLET PO SCH ×2 (13:55→21:11)
[2019-03-23] MEDS: MAGNESIUM OXIDE 400 MG TABLET PO SCH (13:55)
[2019-03-23] MEDS: CELECOXIB 100 MG CAPSULE PO SCH ×2 (13:55→21:11)
[2019-03-23] MEDS ORDERED: MAGNESIUM SULFATE 2 GRAM 2 GM/50 ML BAG IV ONE (14:00)
[2019-03-23] MEDS: IPRATROPIUM/ALBUTEROL 3 ML NEB INH SCH ×2 (15:11→20:24)
--- NOTE | 2019-03-23 15:29 | PROVIDER PROGRESS NOTE ---
Assessment/Plan - Problem List (1) Sepsis due to pneumonia Assessment/Plan: Presented with tachycardia, tachypnea, hypoxia, and leukocytosis with a left shift. CT revaled bilateral multifocal infiltrates. There is concern for possible aspiration on imaging given there is fluid in the upper esophagus as well. Has history of multiple episodes of pneumonia in the past but that was nearly 20 years ago. She is coughing and tachypneic and desaturates on room air, when walking just several feet. Will admit from Obs status to full inpatient admission due to desaturations. Will add Flagyl to Zithro and Ceftin. (2) Aspiration pneumonia Assessment/Plan: CT revaled bilateral multifocal infiltrates. There is concern for possible aspiration on imaging given there is fluid in the upper esophagus as well. Has history of multiple episodes of pneumonia in the past. She is coughing and tachypneic and desaturates on room air, when walking just several feet. Will add Flagyl to Zithro and Ceftin, for better anaerobic bacterial coverage. Continue supplemental oxygen and she will need an exercise oximetry study when ready for [facility], to check if she needs home O2. (3) Type 2 diabetes mellitus with diabetic neuropathy Assessment/Plan: Continue ss Insulin coverage and cc diet. (4) Fibromyalgia Assessment/Plan: Willl order her home meds, as she missed a dose and is in pain with movement or to touch. (5) Depression Assessment/Plan: Will resume home meds. (6) CKD (chronic kidney disease) Assessment/Plan: Resolved abnormal labs - Current Meds Current Meds: Current Medications Generic Name Dose Route Start Last Admin Trade Name Freq PRN Reason Stop Dose Admin Albuterol/Ipratropium 3 ml 03/23/19 15:00 03/23/19 15:11 Duoneb INH 3 ml RTQID MARTIN Administration Azithromycin 250 mg 03/23/19 13:00 03/23/19 13:03 Zithromax PO 250 mg DAILY MARTIN Administration Budesonide 0.5 mg 03/23/19 07:00 03/23/19 07:21 Pulmicort INH 0.5 mg RTBID MARTIN Administration Bupropion HCl 300 mg 03/23/19 09:00 03/23/19 09:31 Wellbutrin Xl PO 300 mg DAILY MARTIN Administration Celecoxib 200 mg 03/23/19 13:14 03/23/19 13:55 Celebrex PO 200 mg BID MARTIN Administration Cetirizine HCl 10 mg 03/23/19 12:15 03/23/19 13:03 Zyrtec PO 10 mg DAILY MARTIN Administration Guaifenesin 600 mg 03/23/19 14:00 03/23/19 13:55 Mucinex PO 600 mg BID MARTIN Administration Hydroxychloroquine Sulfate 200 mg 03/23/19 12:16 03/23/19 13:03 Plaquenil PO 200 mg DAILY MARTIN Administration Ceftriaxone Sodium 1 gm/ 100 mls @ 200 mls/hr 03/22/19 21:06 03/23/19 10:03 Sodium Chloride IV Infused DAILY MARTIN Infusion Metronidazole 500 mg in 100 mls @ 100 mls/hr 03/23/19 13:00 03/23/19 14:24 Flagyl 500 Mg/100 Ml IV Infused Q8H MARTIN Infusion Insulin Aspart 1 - 9 unit 03/22/19 22:05 03/23/19 12:08 Novolog SUBQ 3 unit 0800,1200,1700,2100 MARTIN Administration Protocol Lactobacillus Rhamnosus 1 cap 03/23/19 12:30 03/23/19 13:02 Culturelle PO 1 cap DAILY MARTIN Administration Lamotrigine 50 mg 03/23/19 13:00 03/23/19 13:02 Lamictal PO 50 mg DAILY MARTIN Administration Lansoprazole 30 mg 03/23/19 08:00 03/23/19 09:33 Prevacid PO 30 mg QDAC MARTIN Administration Lisinopril 2.5 mg 03/23/19 09:00 03/23/19 09:31 Zestril PO 2.5 mg DAILY MARTIN Administration Magnesium Oxide 400 mg 03/23/19 13:00 03/23/19 13:55 Mag Ox PO 400 mg DAILYWM MARTIN Administration Montelukast Sodium 10 mg 03/22/19 22:06 03/22/19 22:36 Singulair PO 10 mg QPM MARTIN Administration Pregabalin 200 mg 03/22/19 22:06 03/22/19 22:36 Lyrica PO 200 mg QPM MARTIN Administration Sodium Chloride 10 ml 03/22/19 20:01 03/23/19 13:02 Normal Saline Flush 0.9% IVP 10 ml PRN PRN Administration NEEDED PER PROVIDER ORDERS Sodium Chloride 10 ml 03/23/19 01:00 03/23/19 09:34 Normal Saline Flush 0.9% IVP 10 ml 0100,0900,1700 MARTIN Administration - Lab Result Fish Bone Diagrams: 03/23/19 09:00 03/23/19 09:00 - Additional Planning My Orders: My Active Orders 03/23/19 12:14 Acetaminophen [Tylenol] 500 mg PO Q4H PRN Cyclobenzaprine [Flexeril] 10 mg PO BID PRN SUMAtriptan [Imitrex] 50 mg PO Q2H PRN 03/23/19 12:15 Cetirizine [ZyrTEC] 10 mg PO DAILY 03/23/19 12:16 Hydroxychloroquine [Plaquenil] 200 mg PO DAILY 03/23/19 12:30 Lactobacillus Rhamnosus GG [Culturelle] 1 cap PO DAILY 03/23/19 13:00 Azithromycin [Zithromax] 250 mg PO DAILY Magnesium Oxide [Mag Ox] 400 mg PO DAILYWM lamoTRIgine [LaMICtal] 50 mg PO DAILY metroNIDAZOLE 500 MG/100 ML [Flagyl 500 mg/100 ml] 500 mg in 100 ml IV Q8H 03/23/19 13:11 Acapella (Flutter Valve Device [RC] .tid 03/23/19 13:14 Celecoxib [CeleBREX] 200 mg PO BID 03/23/19 14:00 guaiFENesin [Mucinex] 600 mg PO BID 03/23/19 15:00 Ipratropium/Albuterol [Duoneb] 3 ml INH RTQID 03/23/19 21:00 Hydroxychloroquine [Plaquenil] 100 mg PO QPM Montelukast [Singulair] 10 mg PO QPM glipiZIDE ER [Glucotrol Xl] 5 mg PO QPM 03/24/19 09:00 Lisinopril [Zestril] 1.25 mg PO DAILY glipiZIDE ER [Glucotrol Xl] 7.5 mg PO DAILY Subjective - Subjective Patient Reports: Shortness of Breath, Other (Feels only minimally better) Nursing Reports: Other (Desats to 81% after walked from bathroom to bed without supplemental oxygen) Objective Vital Signs: Vital Signs - 24 hr 03/22/19 03/22/19 03/22/19 17:00 17:35 18:00 Temperature 36.2 C L Heart Rate 87 88 Heart Rate [ Brachial] Respiratory 20 18 18 Rate Blood Pressure 124/98 H Blood Pressure [Left Brachial artery] O2 Saturation 95 88 L 03/22/19 03/22/19 03/22/19 18:48 19:20 20:05 Temperature Heart Rate 91 98 Heart Rate [ Brachial] Respiratory 17 19 17 Rate Blood Pressure 130/69 142/78 H Blood Pressure [Left Brachial artery] O2 Saturation 96 96 03/22/19 03/22/19 03/22/19 20:37 20:50 21:10 Temperature 36.6 C 37.3 C Heart Rate 87 Heart Rate [ 90 Brachial] Respiratory 16 20 Rate Blood Pressure 128/79 Blood Pressure 130/66 [Left Brachial artery] O2 Saturation 99 99 03/22/19 03/22/19 03/23/19 21:49 22:01 00:00 Temperature 37.3 C 36.7 C Heart Rate 90 Heart Rate [ 98 Brachial] Respiratory 20 20 Rate Blood Pressure Blood Pressure 142/75 H [Left Brachial artery] O2 Saturation 95 95 95 03/23/19 03/23/19 03/23/19 04:45 07:25 08:00 Temperature 37 C 36.6 C Heart Rate 66 Heart Rate [ 100 88 Brachial] Respiratory 18 20 16 Rate Blood Pressure Blood Pressure 143/75 H 121/62 [Left Brachial artery] O2 Saturation 93 93 03/23/19 15:14 Temperature Heart Rate 68 Heart Rate [ Brachial] Respiratory 18 Rate Blood Pressure Blood Pressure [Left Brachial artery] O2 Saturation Oxygen O2 Source Nasal cannula I&O (Last 24 Hrs): Intake and Output Totals x24h 03/21/19 03/22/19 03/23/19 23:59 23:59 23:59 Intake Total 300 1409.167 Balance 300 1409.167 General: Alert, Oriented x3, Other (Obese) HEENT: Mucous membr. moist/pink, Other (Wearing glasses) Neck: Supple Neuro: Non Focal Cardiovascular: Regular rate, No murmurs Respiratory: Rhonchi, Other (R sided, postero-lateral) Abdomen: Soft, Other (Obese) Extremities: No edema - Results Results: Laboratory Results WBC 10.7 x10^3/uL (4.8-10.8) 03/23/19 09:00 RBC 3.47 10^6/uL (4.20-5.40) L 03/23/19 09:00 Hgb 9.9 g/dL (12.0-16.0) L 03/23/19 09:00 Hct 31.9 % (37.0-47.0) L 03/23/19 09:00 MCV 91.9 fL (81.0-99.0) 03/23/19 09:00 MCH 28.5 pg (27.0-31.0) 03/23/19 09:00 MCHC 31.0 g/dL (32.0-36.0) L 03/23/19 09:00 RDW 17.5 % (12.0-15.0) H 03/23/19 09:00 Plt Count 216 10^3/uL (130-450) 03/23/19 09:00 MPV 11.5 fL (7.9-10.8) H 03/23/19 09:00 Neut # (Auto) 8.1 10^3/uL (1.5-6.6) H 03/23/19 09:00 Lymph # (Auto) 1.7 10^3/uL (1.5-3.5) 03/23/19 09:00 [place] # (Auto) 0.7 10^3/uL (0.0-1.0) 03/23/19 09:00 Eos # (Auto) 0.1 10^3/uL (0.0-0.7) 03/23/19 09:00 Baso # (Auto) 0.0 10^3/uL (0.0-0.1) 03/23/19 09:00 Absolute Nucleated RBC 0.00 x10^3/uL 03/23/19 09:00 Nucleated RBC % 0.0 /100WBC 03/23/19 09:00 PT 13.5 secs (9.9-12.6) H 03/22/19 17:45 INR 1.2 (0.8-1.2) 03/22/19 17:45 Sodium 142 mmol/L (135-145) 03/23/19 09:00 Potassium 4.0 mmol/L (3.5-5.0) 03/23/19 09:00 Chloride 101 mmol/L (101-111) 03/23/19 09:00 Carbon Dioxide 30 mmol/L (21-32) 03/23/19 09:00 Anion Gap 11.0 (6-13) 03/23/19 09:00 BUN 16 mg/dL (6-20) 03/23/19 09:00 Creatinine 1.0 mg/dL (0.4-1.0) 03/23/19 09:00 Estimated GFR (MDRD) 59 (>89) L 03/23/19 09:00 Glucose 149 mg/dL (70-100) H 03/23/19 09:00 Calcium 8.8 mg/dL (8.5-10.3) 03/23/19 09:00 Magnesium 1.3 mg/dL (1.7-2.8) L 03/23/19 09:00 Total Bilirubin 1.1 mg/dL (0.2-1.0) H 03/22/19 17:45 AST 14 IU/L (10-42) 03/22/19 17:45 ALT 15 IU/L (10-60) 03/22/19 17:45 Alkaline Phosphatase 81 IU/L (42-121) 03/22/19 17:45 Troponin I High Sens 8.2 pg/mL (2.3-14.8) 03/22/19 17:45 B-Natriuretic Peptide 70 pg/mL (5-100) 03/22/19 17:45 Total Protein 6.9 g/dL (6.7-8.2) 03/22/19 17:45 Albumin 3.6 g/dL (3.2-5.5) 03/22/19 17:45 Globulin 3.3 g/dL (2.1-4.2) 03/22/19 17:45 Albumin/Globulin Ratio 1.1 (1.0-2.2) 03/22/19 17:45 Lipase 29 U/L (22-51) 03/22/19 17:45 Sepsis Event Note (H) - Evaluation Current Stage of Sepsis: Sepsis - Sepsis Criteria Sepsis Criteria: Recorded Heart Rate greater than 90 bpm, Recorded Respiratory Rate greater than 20, Respiratory: Increasing oxygen requirements, WBC count greater than 12,000 or less than 4000
[2019-03-23] MEDS ORDERED: PREGABALIN 100 MG CAPSULE PO SCH (21:00)
[2019-03-23] MEDS ORDERED: MONTELUKAST 10 MG TABLET PO SCH ×2 (21:00)
[2019-03-23] MEDS ORDERED: ATORVASTATIN 40 MG TABLET PO SCH ×2 (21:00)
[2019-03-23] MEDS ORDERED: PREGABALIN 200 MG PO SCH (21:00)
[2019-03-23] MEDS ORDERED: HYDROXYCHLOROQUINE 200 MG TABLET PO SCH (21:00)
[2019-03-23] MEDS ORDERED: CELECOXIB 100 MG CAPSULE PO SCH (21:00)
[2019-03-23] MEDS: MONTELUKAST 10 MG TABLET PO SCH (21:13)
[2019-03-23] MEDS: PREGABALIN 100 MG CAPSULE PO SCH (21:13)
[2019-03-23] MEDS: HYDROCORTISONE 1% CREAM 28 GM TUBE TOP SCH (21:50)
[2019-03-23] MEDS ORDERED: cefUROXime axetil 250 MG TABLET PO SCH (22:00)
[2019-03-23] MEDS: metroNIDAZOLE 250 MG TABLET PO SCH (22:19)
[2019-03-24] MEDS: SODIUM CHLORIDE FLUSH 0.9% 10 ML SYRINGE IVP SCH ×2 (00:11→08:21)
[2019-03-24] MEDS: IPRATROPIUM/ALBUTEROL 3 ML NEB INH SCH ×2 (07:56→11:24)
[2019-03-24] MEDS: BUDESONIDE 0.5 MG/2 ML NEB INH SCH (07:57)
[2019-03-24] MEDS: metroNIDAZOLE 250 MG TABLET PO SCH (08:14)
[2019-03-24] MEDS: INSULIN ASPART 300 UNIT/3 ML PEN SUBQ SCH ×2 (08:15→11:52)
[2019-03-24] MEDS: LANSOPRAZOLE 15 MG CAPSULE PO SCH (08:15)
[2019-03-24] MEDS: MAGNESIUM OXIDE 400 MG TABLET PO SCH (08:16)
[2019-03-24 08:17] VITALS: BP 130/69
[2019-03-24] MEDS: AZITHROMYCIN 250 MG TABLET PO SCH (08:17)
[2019-03-24] MEDS: buPROPion XL 150 MG TABLET PO SCH (08:17)
[2019-03-24] MEDS: CELECOXIB 100 MG CAPSULE PO SCH (08:18)
[2019-03-24] MEDS: guaiFENesin 600 MG TABLET PO SCH (08:19)
[2019-03-24] MEDS: CETIRIZINE 10 MG TABLET PO SCH (08:19)
[2019-03-24] MEDS: HYDROXYCHLOROQUINE 200 MG TABLET PO SCH (08:20)
[2019-03-24] MEDS: HYDROCORTISONE 1% CREAM 28 GM TUBE TOP SCH (08:20)
[2019-03-24] MEDS ORDERED: cefTRIAXone 1 GM in SODIUM CHLORIDE 0.9% MINIBAG 100 ML IV SCH (09:00)
[2019-03-24] MEDS ORDERED: PREGABALIN 100 MG CAPSULE PO SCH (09:00)
[2019-03-24] MEDS ORDERED: PREGABALIN 25 MG CAPSULE PO SCH (09:00)
[2019-03-24] MEDS ORDERED: ATORVASTATIN 40 MG TABLET PO SCH (09:00)
[2019-03-24] MEDS ORDERED: POLYETHYLENE GLYCOL 3350 17 GM PACKET PO SCH (09:00)
[2019-03-24] MEDS ORDERED: LISINOPRIL 5 MG TABLET PO SCH (09:00)
--- NOTE | 2019-03-24 10:34 | XRAY Report ---
Reason: Hypoxia. Follow up pneumonia. Procedure Date: 03/24/2019 Accession Number: [id number] / [id number] Procedure: XR - Chest 1 View X-Ray CPT Code: 08452 FULL RESULT: EXAM: CHEST RADIOGRAPHY EXAM DATE: 03/24/2019 08:45 AM. CLINICAL HISTORY: Hypoxia. Follow up pneumonia. COMPARISON: Chest radiograph from 03/22/2019, CTA chest from 03/22/2019. TECHNIQUE: 1 view. FINDINGS: Lungs/Pleura: There are diffuse hazy airspace opacities throughout both lungs with additional subtle patchy opacity in the left upper lung. Overall, there has been is unchanged. Small bilateral pleural effusions are present. No pneumothorax. Mediastinum: There is prominence of the cardiomediastinal contour as well as engorgement and indistinctness of the pulmonary vasculature. Other: None. IMPRESSION: 1. Findings of mild CHF/fluid overload with small bilateral pleural effusions, not significantly changed. 2. No significant change in patchy left upper lung opacity, which did not have the appearance of pulmonary edema on CT and is compatible with superimposed pneumonia. RADIA
[2019-03-24] MEDS ORDERED: cefUROXime axetil 250 MG TABLET PO SCH (11:00)
--- NOTE | 2019-03-24 11:24 | Discharge Plan ---
Discharge Plan Problem Reviewed?: Yes Disposition: Home, Self Care Condition: Stable Prescriptions: Azithromycin [Zithromax] 250 mg PO DAILY #7 tablet cefUROXime axetil [Ceftin] 500 mg PO BID #14 tablet guaiFENesin [Mucinex] 600 mg PO BID #14 tablet Lactobacillus Rhamnosus GG [Culturelle] 1 cap PO DAILY #7 capsule metroNIDAZOLE [Flagyl] 500 mg PO TID #21 tablet Diet: Diabetic Activity Restrictions: Activity as Tolerated Shower Restrictions: No Assistance Devices: Cane Weight Bearing: Full Weight Instruction Topics: Metronidazole tablets or capsules, Cefuroxime tablets, Azithromycin tablets, Lactobacillus Oral formulations, Atelectasis, Pneumonia, Pneumonia Tx, Dysphagia Aspiration Health Concerns: Admitted with shortness of breath and low oxygen levels and a widespread pneumonia was found. It is very likely from aspiration of plegm and fluid in your throat and esophagus. Plan of Treatment: Three different antibiotics are needed to treat this widespread pneumonia with probiotics, and Mucinex plus using the Acapella device for eliminating the phlegm. Also, you now need supplemental oxygen which has been ordered for you. Resume all your other pre-hospital medications. Care Goals: Goal is improvement in respiratory status. Assessment: The patient is agreeable with the plan. Additional Instructions or Follow Up instructions: See your PCP and/or Band Maker for hospital follow-up in a week. If you have new or worsening symptoms, call your provider for advice or come to the ER. No Smoking: If you smoke, Please STOP! Call for help. Follow-up with: ELYSSA LOFTON [Physician No Access] -
--- NOTE | 2019-03-24 17:28 | DISCHARGE SUMMARY ---
Discharge Summary Admit Date: 03/22/19 Discharge Date: 03/24/19 Discharging Provider: Dr Mariya Dolan Primary Care Provider: Dr Latisha Bhatti Code Status: Attempt Resuscitation Condition at Discharge: Stable Discharge Disposition: 01 Home, Self Care - DIAGNOSES Admission Diagnoses: 1) Sepsis 2) Multifocal pneumonia 3) COPD with hypoxia 4) Fibromyalgia 5) Depression Discharge Diagnoses with Status of Each Condition: See below - HPI History of Present Illness: From the admission H&P of Dr Ulysses Lowry: his is a 49 year old female with a past medical history significant for tracheoe sophageal fistula s/p repair, type 2 diabeted w/ neuropathy, COPD, and GERD who presents from home complaining of worsening shortness of breath over these past three days. She denies associated fevers but has had a mild nonproductive cough. She denies worsening of her chronic lower extremity edema. She sleeps on a slight incline at home which is not changed compared to her baseline. She reports a prior history of pulmonary embolism a few years ago for which she was treated with Coumadin for 6 months. She has had multiple episdoes of pneumonia when she was younger and the last episode was over 20 years ago. She did require intubations at that time. 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 She reports she was told she only has 3/4 of a functioning right lung. She reports mild chest tightness that resolved with a breathing treatment. Denies nausea, vomiting, abdominal pain. In the ER, she was normotensive but tachycardic with heart rate in the 90's. She was also hypoxic on room air at 88% which improved to mid 90's on 2L NC. Her labs did reveal an elevated white count with a left shift. Her x-ray was concerning for left sided infiltrate. A CTA was done which was negative for pulmonary embolism but did confirm infiltrates suggestive of multifocal pneumon ia or aspiration. She will be admitted for further management. - HOSPITAL COURSE Hospital Course: (1) Sepsis due to pneumonia She presented with tachycardia, tachypnea, hypoxia, and leukocytosis with a left shift. CT revaled bilateral multifocal infiltrates. There is concern for possible aspiration on imaging given there was fluid in the upper esophagus as well. She also has history of multiple episodes of pneumonia in the past but that was nearly 20 years ago. She wa put on iv Zithromycin and Cefriaxone and the WBC improved. She continued to be coughing and tachypneic and desaturated on room air, when walking just several feet and was admitted from Observation status to full inpatient admission due to desaturations. Flagyl was added to Zithro and Ceftriaxone. She had multiple complaints of pain at the iv site with each antibiotic infusion and demanded the iv be stopped. She was changed to oral Zithro, Flagyl and Ceftin and was discharged on 3 antibiotics, plus a probiotic plus Mucinex, an Acapella device for pulmonary toilet and needed new home oxygen (see #3 below). (2) Aspiration pneumonia CT of the chest revealed bilateral multifocal infiltrates. There was concern for possible aspiration on imaging given there was fluid in the upper esophagus as well. Has history of multiple episodes of pneumonia in the past. The antibiotics used were as described above. She reported chronic sinus drainage and post-nasal drip and is scheduled to see ENT in April. (3) COPD with hypoxia She was on scheduled inhalers but had no active wheezing while here. The patient was hypoxic during ambulation, with room air O2 saturation of 85%. On 2L pm her oxygen saturation was 97% with mikd exertion. I am ordering O2 at 2L per minute via nasal cannula to use during ambulation/exercise. (4) Type 2 diabetes mellitus with diabetic neuropathy She was on a carb-controlled diet and sliding scale Insulin while here. Her home Diabetic management was advised to restart at discharge. (5) Fibromyalgia She had complaints of diffuse pain and her home medications were continued. (6) Depression She was kept on her usual medications (7) CKD (chronic kidney disease) Her baseline creat was 1.2 and the following day it was 1.0 - ALLERGIES Allergies/Adverse Reactions: Allergies Allergy/AdvReac Type Severity Reaction Status Date / Time adhesive Allergy Rash Verified 02/15/19 13:32 Sulfa (Sulfonamide Allergy Edema Verified 02/15/19 13:32 Antibiotics) - MEDICATIONS Home Medications: Ambulatory Orders Medication Instructions Recorded Confirmed Albuterol Sulf [Ventolin Hfa 1 - 2 puffs INH Q6H PRN 08/19/18 03/23/19 Inhaler] Celecoxib [CeleBREX] 200 mg PO BID 08/19/18 03/23/19 Cetirizine [ZyrTEC] 10 mg PO DAILY 08/19/18 03/23/19 Cyclobenzaprine [Flexeril] 10 mg PO BID PRN 08/19/18 03/23/19 Hydroxychloroquine [Plaquenil] 200 mg PO DAILY 08/19/18 03/23/19 Lansoprazole [Prevacid] 15 mg PO DAILY 08/19/18 03/22/19 Lisinopril 1.25 mg PO DAILY 08/19/18 03/23/19 Montelukast [Singulair] 10 mg PO QPM 08/19/18 03/22/19 Pregabalin [Lyrica] 150 mg PO DAILY 08/19/18 03/22/19 SUMAtriptan [Imitrex] 50 mg PO Q2H PRN MDD 2 08/19/18 03/23/19 buPROPion [Wellbutrin Xl] 300 mg PO DAILY 08/19/18 03/22/19 Acetaminophen 500 mg PO Q4H PRN MDD 6 03/23/19 03/23/19 Atorvastatin Calcium 40 mg PO QPM 03/23/19 03/23/19 Budesonide [Pulmicort Flexhaler] 2 puffs INH DAILY 03/23/19 03/23/19 Glipizide [Glipizide ER] 5 mg PO QPM 03/23/19 03/23/19 Hydroxychloroquine [Plaquenil] 100 mg PO QPM 03/23/19 03/23/19 Lactobacillus Acidophilus 1 each PO DAILY 03/23/19 03/23/19 [Acidophilus] Metformin HCl [Metformin HCl ER] 500 mg PO BID 03/23/19 03/23/19 Mometasone Furoate 2 puffs SAVANNAH DAILY PRN 03/23/19 03/23/19 Pioglitazone HCl 30 mg PO DAILY 03/23/19 03/23/19 Pregabalin [Lyrica] 200 mg PO QPM 03/23/19 03/23/19 glipiZIDE ER [Glucotrol Xl] 7.5 mg PO DAILY 03/23/19 03/23/19 lamoTRIgine [LaMICtal] 50 mg PO DAILY 03/23/19 03/23/19 Azithromycin [Zithromax] 250 mg PO DAILY #7 tablet 03/24/19 Lactobacillus Rhamnosus GG 1 cap PO DAILY #7 capsule 03/24/19 [Culturelle] cefUROXime axetil [Ceftin] 500 mg PO BID #14 tablet 03/24/19 guaiFENesin [Mucinex] 600 mg PO BID #14 tablet 03/24/19 metroNIDAZOLE [Flagyl] 500 mg PO TID #21 tablet 03/24/19 - PHYSICAL EXAM AT DISCHARGE General Appearance: positive: No acute distress, Alert Eyes Bilateral: positive: Normal inspection, Other (Wears glasses) ENT: positive: ENT inspection nml Neck: positive: Thyroid nml, No JVD Respiratory: positive: Other (Scattered rhonchi R lateral chest, otherwise clear) Cardiovascular: positive: Regular rate & rhythm, No murmur Abdomen: positive: Non-tender, Other (Obese with pannus) Skin: positive: Color nml Extremities: positive: No pedal edema, Other (Lymphedema of the shins present) - LABS Result Diagrams: 03/23/19 09:00 03/23/19 09:00 - DIAGNOSTIC IMAGING Diagnostic Imaging Results: Final report reviewed - SEPSIS Current Stage of Sepsis: Sepsis Sepsis Criteria: Recorded Heart Rate greater than 90 bpm, Recorded Respiratory Rate greater than 20, Respiratory: Increasing oxygen requirements, WBC count greater than 12,000 or less than 4000 - FOLLOW UP Follow Up: See Dr Bhatti in 5-10 days in follow-up. - TIME SPENT Time Spent in Discharge (Minutes): 55
[2019-03-24] MEDS ORDERED: LACTOBACILLUS RHAMNOSUS GG CAPSULE PO SCH (21:00)
[2019-03-24] MEDS ORDERED: lamoTRIgine 25 MG TABLET PO SCH (21:00)
== END 2019-03-24 14:10 | disposition home or self-care (01) | DRG 871 ==
LOC: EDUNIT# → ED 16:56 → MS2 20:01 → OBSVTOIN 03-23 13:09
PROVIDERS: ADMIT Internal Medicine; ATTEND Internal Medicine
DX: A41.9 Sepsis, unspecified organism (principal); J69.0 Pneumonitis due to inhalation of food and vomit; Z68.42 Body mass index [BMI] 45.0-49.9, adult; R09.82 Postnasal drip; R09.02 Hypoxemia; J44.9 Chronic obstructive pulmonary disease, unspecified; E11.22 Type 2 diabetes mellitus with diabetic chronic kidney disease; N18.9 Chronic kidney disease, unspecified; E11.40 Type 2 diabetes mellitus with diabetic neuropathy, unspecified; K21.9 Gastro-esophageal reflux disease without esophagitis; M79.7 Fibromyalgia; F32.9 Major depressive disorder, single episode, unspecified; I89.0 Lymphedema, not elsewhere classified; E78.00 Pure hypercholesterolemia, unspecified; E66.9 Obesity, unspecified; Z87.75 Personal history of (corrected) congenital malformations of respiratory system; Z87.738 Personal history of other specified (corrected) congenital malformations of digestive system; Z90.2 Acquired absence of lung [part of]; Z86.711 Personal history of pulmonary embolism; Z86.718 Personal history of other venous thrombosis and embolism; Z79.84 Long term (current) use of oral hypoglycemic drugs; Z79.899 Other long term (current) drug therapy; Z79.51 Long term (current) use of inhaled steroids; Z82.49 Family history of ischemic heart disease and other diseases of the circulatory system
CPT/HCPCS: 36415; 71045; 71275; 80048; 80053; 83690; 83735; 83880; 84484; 85025; 85610; 93005; 94640; 94664; 94761; 96365; 96366; 96367; 99284; 99285; A9270; G0378; J7626; Q9967

== ENCOUNTER 2019-08-06 13:35 | Outpatient (CLI) | payer MEDICAID | END 2019-08-06 13:36 | disposition EMS.NT | LOC: EMS 13:35 | PROVIDERS: ATTEND Surgery | DX: R07.9 Chest pain, unspecified (principal) ==